=== PATIENT | female | born 1990 | race Two or more races ===

== ENCOUNTER → 2019-10-25 | Emergency (ER) | payer MEDICAID, OTHER ==
[~2019-10-25] VITALS: Ht 165.1 cm; Wt 74.8 kg
[~2019-10-25] MED LIST: CIPROFLOXACIN HCL 500 MG TAB PO ONE; HALOPERIDOL LACTATE 5 MG/ML INJ VIAL IM ONE; HALOPERIDOL LACTATE 5 MG/ML INJ VIAL ONE; LORazepam 2MG/ML-1ML VIAL IM ONE; LORazepam 2MG/ML-1ML VIAL ONE; diphenhdrAMINE HCL 50 MG/1 ML VL IM ONE; diphenhdrAMINE HCL 50 MG/1 ML VL ONE
[2019-10-25 20:23] LABS: Basophils # (auto) 0 10 ^3/uL (0-0.2); Eosinophils # (auto) 0.1 10 ^3/uL (0-0.8); Mean Corpuscular Volume 80.6 fL (80.0-100.0)
[2019-10-25 20:25] LABS: Basophils % (auto) 0.4 % (0.0-2.0); Eosinophils % (auto) 1.3 % (0.0-7.0); Hematocrit 36.2 % (36.0-46.0); Hemoglobin 11.6 g/dL (12.2-16.2); Lymphocytes # (auto) 1.1 10 ^3/uL (0.4-5.4); Lymphocytes % (auto) 14.7 % (10.0-50.0); Mean Corpuscular Hemoglobin 25.8 pg (28.0-32.0); Monocytes # (auto) 0.6 10 ^3/uL (0-1.3); Monocytes % (auto) 7.3 % (0.0-12.0); Neutrophils # (auto) 5.8 10 ^3/uL (1.6-8.6); Neutrophils % (auto) 76.3 % (37.0-80.0); Platelet Count (auto) 431 10^3/uL (140-450); Red Blood Cells 4.49 10^6/uL (4.0-5.20); Red Cell Distribution Width 14.7 % (11.8-14.3); White Blood Cell 7.7 10^3/uL (4.4-10.8)
[2019-10-25 20:39] LABS: Albumin 3.7 g/dL (3.4-5.0); Anion Gap 6 (5-15); Blood Urea Nitrogen 16 mg/dL (7-18); Calcium 8.8 mg/dL (8.5-10.1); Carbon Dioxide 24 mmol/L (21-32); Chloride 109 mmol/L (98-107); Glucose 75 mg/dL (74-106); Magnesium 2.4 mg/dL (1.6-2.6); Potassium 3.7 mmol/L (3.5-5.1); Sodium 139 mmol/L (136-145)
[2019-10-25 20:40] LABS: Salicylate < 1.7 mg/dL (2.8-20.0)
[2019-10-25 20:41] LABS: Acetaminophen < 2.0 ug/mL (10-30)
[2019-10-25 20:43] LABS: Alanine Aminotransferase 42 U/L (13-56); Alkaline Phosphatase 79 U/L (45-117); Aspartate Aminotransferase 29 U/L (15-37); BUN/Creatinine Ratio 18.6; Bilirubin, Total 0.6 mg/dL (0.2-1.0); Blood Alcohol < 3.0 mg/dL (0-5); GFR African American 100 mL/min; GFR Non-African American 82 mL/min; Total Protein 8.3 g/dL (6.4-8.2)
[2019-10-26 01:25] LABS: Alcohol, Urine < 3.0 mg/dL (0-10); Amphetamine Screen, Urine POSITIVE (NEGATIVE); Barbiturate Scree,Urine NEGATIVE (NEGATIVE); Benzodiazephine Screen, Urine POSITIVE (NEGATIVE); Cannabinoid Screen, Urine POSITIVE (NEGATIVE); Cocaine Screen, Urine NEGATIVE (NEGATIVE); Opiate Scree,Urine NEGATIVE (NEGATIVE); Phencyclidine Screen, Urine NEGATIVE (NEGATIVE)
[2019-10-26 01:45] LABS: Urine Bacteria FEW /hpf (None Seen); Urine Blood 1+ /uL (Negative); Urine Hyaline Cast FEW /lpf (0 - 2); Urine Mucus FEW (None Seen); Urine WBC 17 /hpf (0 - 5)
[2019-10-26 05:25] VITALS: BP 128/75
== END | disposition home or self-care (01) ==
LOC: EDBD 18:56 → ER 18:56
DX: R41.82 Altered mental status, unspecified (principal); F23 Brief psychotic disorder; Z32.02 Encounter for pregnancy test, result negative
CPT/HCPCS: 36415; 80053; 80307; 80320; 80329; 81001; 81025; 83735; 85025; 96372; 99285; J1200; J1630; J2060

== ENCOUNTER 2020-11-26 11:49 | Emergency (ER) | payer MEDICAID ==
[~2020-11-26] VITALS: Ht 177.8 cm; Wt 81.6 kg
[2020-11-26] MEDS ORDERED: LORazepam 2MG/ML-1ML VIAL IV ONE (12:00)
[2020-11-26] MEDS ORDERED: HALOPERIDOL LACTATE 5 MG/ML INJ VIAL IM ONE (12:00)
[2020-11-26] MEDS ORDERED: diphenhdrAMINE HCL 50 MG/1 ML VL IV ONE (12:00)
[2020-11-26 12:26] LABS: Basophils # (auto) 0 10 ^3/uL (0-0.2); Basophils % (auto) 0.7 % (0.0-2.0); Lymphocytes # (auto) 1.6 10 ^3/uL (0.4-5.4); Lymphocytes % (auto) 29.5 % (10.0-50.0); Monocytes # (auto) 0.5 10 ^3/uL (0-1.3); Neutrophils # (auto) 3.3 10 ^3/uL (1.6-8.6); White Blood Cell 5.5 10^3/uL (4.4-10.8)
[2020-11-26 12:29] LABS: Eosinophils # (auto) 0.1 10 ^3/uL (0-0.8); Hematocrit 31.8 % (36.0-46.0); Hemoglobin 10.6 g/dL (12.2-16.2); Mean Corpuscular Hemoglobin 26.8 pg (28.0-32.0); Mean Corpuscular Hgb Conc. 33.4 g/dL (32.0-36.0); Mean Corpuscular Volume 80.3 fL (80.0-100.0); Monocytes % (auto) 8.4 % (0.0-12.0); Neutrophils % (auto) 60.4 % (37.0-80.0); Red Blood Cells 3.96 10^6/uL (4.0-5.20); Red Cell Distribution Width 15.4 % (11.8-14.3)
[2020-11-26 12:39] LABS: Anion Gap 6 (5-15); BUN/Creatinine Ratio 21.1; Blood Alcohol < 3.0 mg/dL (0-5); Blood Urea Nitrogen 15 mg/dL (7-18); Calcium 8.4 mg/dL (8.5-10.1); Carbon Dioxide 24 mmol/L (21-32); Chloride 110 mmol/L (98-107); GFR African American 123 mL/min; GFR Non-African American 102 mL/min; Glucose 89 mg/dL (74-106); Potassium 3.4 mmol/L (3.5-5.1); Sodium 140 mmol/L (136-145)
[2020-11-26 12:49] VITALS: BP 134/78
[2020-11-26 14:26] LABS: Alcohol, Urine < 3.0 mg/dL (0-10); Amphetamine Screen, Urine NEGATIVE (NEGATIVE); Barbiturate Scree,Urine NEGATIVE (NEGATIVE); Benzodiazephine Screen, Urine NEGATIVE (NEGATIVE); Cannabinoid Screen, Urine NEGATIVE (NEGATIVE); Cocaine Screen, Urine NEGATIVE (NEGATIVE); Opiate Scree,Urine NEGATIVE (NEGATIVE); Phencyclidine Screen, Urine NEGATIVE (NEGATIVE)
== END 2020-11-26 15:14 | disposition left against medical advice (07) ==
LOC: EDBD 11:49 → EDUNIT# 11:49 → ER 11:49
DX: F23 Brief psychotic disorder (principal)
CPT/HCPCS: 36415; 80048; 80307; 80320; 85025; 99283; J7030